=== PATIENT | female | born 1930 | race Caucasian/White ===

== ENCOUNTER → 2017-05-05 | Outpatient (CLI) | payer OTHER ==
[~2017-05-05] VITALS: Ht 157.5 cm; Wt 60.8 kg
[~2017-05-05] MED LIST: ALDACTONE25 MG PO; ALIGN4 MG PO; BIOTIN1 MG PO; BIOTIN5 MG PO; CENTRUM SILVER1 EAC4 PO; GLUCOSAMINE &1 EAC1 PO; HYDROCODON-ACE1 EAC7 PO; LOSARTAN POTAS100 MG PO; MELOXICAM7.5 MG PO; METOPROLOL SUCC25 M1 PO; MOBIC7.5 MG PO; PACERONE 200 M200 M1 PO; SIMVASTATIN20 MG PO; TRAMADOL 50 MG50 MG PO; ULTRACET TABLET1 TAB PO; VITAMIN D400 UNI1 PO
--- NOTE | ~2017-05-05 | HPC ---
[facility] [address] [place] [address] PAIN MANAGEMENT CONSULTATION Name: ULISSES NEWMAN Room #: REG [facility] Jenny.#: [id number] Admission: 05/05/17 Attend Phys: Jero Ni MD Discharge: Date of : [birth year] Report #: [id number] THIS REPORT FOR: //name// CC: Regino Ni DATE OF SERVICE: 05/05/2017 DATE OF REGISTRATION: 05/05/2017. CHIEF COMPLAINT: Pain into the hip and low back. SUBJECTIVE: The patient is a mukesh 87-year-old who I am seeing today as a new consultation. She has been seen in the clinic, but it has been over 4 years. Today, she presents with low back pain radiating into left hip and left leg. She also has pains in her hands and her mid back. At time, she feels as though her feet are encased in rubber tissue and that they are tingling. This radiates down from her and it is likely radiculopathy. She is here today in essence because a good friend of hers is one of my patients who has nearly 9 years done beautifully with Butrans patch, and she wanted to ask me about it. She has been unable to tolerate most medications, although she had some relief with tramadol in the past. She was uncertain of the proper dose. She does take meloxicam 7.5 mg 3 times a week, and we discussed that in her visit. Four years ago, Dr. Rowe has allowed her to take it sparingly with risks of GI and renal toxicity at the forefront. MEDICATIONS: Other medications are Biotin, amiodarone, Align, Centrum Silver, simvastatin, spironolactone, losartan, and metoprolol. ALLERGIES: None. PAST MEDICAL HISTORY: Hypertension, palpitations, incontinence, lightheadedness, dizziness, history of laminectomy in 1990 with post-laminectomy syndrome. SOCIAL HISTORY: She is an active 87-year-old, sings in local choir. She likes to swim at different times in the year. She lives independently. PHYSICAL EXAMINATION: GENERAL: Sharp and alert. She walks with a walker to our office, although she says she only uses it sparingly. VITAL SIGNS: Blood pressure 136/50, heart rate 85, respirations 14, BMI is [facility] [address] [place] [address] PAIN MANAGEMENT CONSULTATION Name: ULISSES NEWMAN Room #: REG [facility] Lisandro.#: [id number] Admission: 05/05/17 Attend Phys: Jero Ni MD Discharge: Date of : [birth year] Report #: [id number] 24.5. MUSCULOSKELETAL: She can easily move from sitting to standing position and ambulate with a stable gait. She has tenderness throughout her upper back and down into lumbosacral spine across the scar from her previous surgery. Straight leg raising reproduces pain into the left hip and down the leg. Deep tendon reflexes are absent. EXTREMITIES: Examination of the upper extremities reveals good strength. 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 The left hand is strong with no weakness. Sensation is intact. Deep tendon reflexes in the upper extremity are 2+. IMPRESSION: 1. Chronic low back pain with radiculopathy, post-laminectomy syndrome. 2. Low back pain also attributed to spondylosis. 3. Increase radiating pain in the left leg, which may be radicular or could be due to osteoarthritis. 4. Management of high risk medication. RECOMMENDATIONS: After some discussion, we have decided today that we will initiate the use of tramadol 37.5/325 or Ultracet, she will use 1/2 to 1 tablet twice a day. If this is ineffective, I will trial her on Butrans. Side effects of these opioid medications were reviewed, most prominently constipation. She will use a stool softener or laxative. Followup visit planned as needed. By: [id number] Jero Ni MD /nt
[2017-05-05 13:18] VITALS: BP 133/50
== END | disposition home or self-care (01) ==
LOC: PAIN 06:44
DX: M96.1 Postlaminectomy syndrome, not elsewhere classified (principal); M25.552 Pain in left hip; I10 Essential (primary) hypertension; R32 Unspecified urinary incontinence; Z87.891 Personal history of nicotine dependence